=== PATIENT | male | born 1970 | race Caucasian/White ===

== ENCOUNTER 2018-02-04 13:49 | Emergency (ER) | payer SELFPAY ==
--- NOTE | 2018-02-04 15:27 | EDPHYS ---
Physician Documentation [facility] Name: Mauricio Landaverde Age: 47 yrs Sex: Male : 1970 Arrival Date: 02/04/2018 Time: 13:52 Bed 15 Private MD: ED Physician Wilber Cristobal HPI: 02/04 21:45 This 47 yrs old Male presents to ER via Ambulatory with complaints of Back snw Pain, Thumb Pain. 21:45 The patient presents with pain that is acute, with no known mechanism of injury. The snw symptoms are located in the low back. 21:52 Onset: The symptoms/episode began/occurred suddenly, 3 week(s) ago, and became snw persistent. The pain does not radiate. Associated signs and symptoms: The patient has no apparent associated signs or symptoms. The problem was sustained from unknown cause. Severity of symptoms: At their worst the symptoms were moderate, relieved by motrin/aleve. The patient has not experienced similar symptoms in the past. The patient has been recently seen by a physician: the patient's primary care provider, with similar presenting complaints, told to continue aleve. Historical: - Allergies: 13:59 No Known Allergies; aj - Home Meds: 13:59 None [Active]; aj - PMHx: 13:59 None; aj - PSHx: 13:59 Appendectomy; aj - Immunization history:: Adult Immunizations up to date. - Social history:: Smoking status: Patient uses tobacco products, smokes two packs cigarettes per day. - Ebola Screening: : Patient negative for fever greater than or equal to 101.5 degrees Fahrenheit, and additional compatible Ebola Virus Disease symptoms Patient denies exposure to infectious person Patient denies travel to an Ebola-affected area in the 21 days before illness onset No symptoms or risks identified at this time. ROS: 21:43 Constitutional: Negative for fever, chills, and weight loss, Eyes: Negative for injury, snw pain, redness, and discharge, ENT: Negative for injury, pain, and discharge, Neck: Negative for injury, pain, and swelling, Cardiovascular: Negative for chest pain, palpitations, and edema, Respiratory: Negative for shortness of breath, cough, wheezing, and pleuritic chest pain, Abdomen/GI: Negative for abdominal pain, nausea, vomiting, diarrhea, and constipation, : Negative for injury, bleeding, discharge, and swelling, MS/Extremity: Negative for injury and deformity, Skin: Negative for injury, rash, and discoloration, Neuro: Negative for headache, weakness, numbness, tingling, and seizure. 21:43 Back: Positive for pain at rest, pain with movement. Exam: 21:43 Constitutional: This is a well developed, well nourished patient who is awake, alert, snw and in no acute distress. Head/Face: Normocephalic, atraumatic. Eyes: Pupils equal round and reactive to light, extra-ocular motions intact. Lids and lashes normal. Conjunctiva and sclera are non-icteric and not injected. Cornea within normal limits. Periorbital areas with no swelling, redness, or edema. ENT: Nares patent. No nasal discharge, no septal abnormalities noted. Tympanic membranes are normal and external auditory canals are clear. Oropharynx with no redness, swelling, or masses, exudates, or evidence of obstruction, uvula midline. Mucous membranes moist. Neck: Trachea midline, no thyromegaly or masses palpated, and no cervical lymphadenopathy. Supple, full range of motion without nuchal rigidity, or vertebral point tenderness. No Meningismus. Chest/axilla: Normal chest wall appearance and motion. Nontender with no deformity. No lesions are appreciated. Cardiovascular: Regular rate and rhythm with a normal S1 and S2. No gallops, murmurs, or rubs. Normal PMI, no JVD. No pulse deficits. Respiratory: Lungs have equal breath sounds bilaterally, clear to auscultation and percussion. No rales, rhonchi or wheezes noted. No increased work of breathing, no retractions or nasal flaring. Abdomen/GI: Soft, non-tender, with normal bowel sounds. No distension or tympany. No guarding or rebound. No evidence of tenderness throughout. Skin: Warm, dry with normal turgor. Normal color with no rashes, no lesions, and no evidence of cellulitis. MS/ Extremity: Pulses equal, no cyanosis. Neurovascular intact. Full, normal range of motion. Neuro: Awake and alert, GCS 15, oriented to person, place, time, and situation. Cranial nerves II-XII grossly intact. Motor strength 5/5 in all extremities. Sensory grossly intact. Cerebellar exam normal. Normal gait. Psych: Awake, alert, with orientation to person, place and time. Behavior, mood, and affect are within normal limits. 21:43 Back: pain, that is mild, that is moderate, of the lumbar area, left low back and right low back, ROM is normal, normal spinal alignment noted, CVA tenderness, is absent, muscle spasm, is not present. 21:45 Neuro: Exam negative for acute changes. snw Vital Signs: 13:59 BP 126 / 72; Pulse 77; Resp 20; Temp 98.1; Pulse Ox 98% on R/A; Weight 83.91 kg; Height aj 6 ft. 0 in. (182.88 cm); 13:59 Body Mass Index 25.09 (83.91 kg, 182.88 cm) aj MDM: 14:44 Medical screening is not applicable. snw 21:44 Data reviewed: vital signs, nurses notes. Data interpreted: Pulse oximetry: on room air snw is 98 %. Interpretation: normal. Counseling: I had a detailed discussion with the patient and/or guardian regarding: the historical points, exam findings, and any diagnostic results supporting the discharge/admit diagnosis, lab results, the need for outpatient follow up, to return to the emergency department if symptoms worsen or persist or if there are any questions or concerns that arise at home. Special discussion: Based on the history and exam findings, there is no indication for further emergent testing or inpatient evaluation. I discussed with the patient/guardian the need to see the back specialist for further evaluation of the symptoms. I discussed with the patient/guardian the need to see the primary care provider for further evaluation of the symptoms. 21:53 ED course: pt encouraged to drink more water, decrease caffeine, protect himself from snw the sun ( works outdoors, very [place] ), be careful taking anti-inflammatories because they can injure the kidneys. Urine neg for protein or blood.. 02/04 14:45 Order name: Urine Microscopic Only; Complete Time: 21:52 snw 02/04 15:27 Order name: Urine Dipstick--Ancillary (enter results) eb 02/04 14:45 Order name: Urine Dipstick-Ancillary (obtain specimen); Complete Time: 15:26 snw 02/04 15:27 Order name: Urine Dipstick-Ancillary; Complete Time: 15:33 EDMS Administered Medications: No medications were administered Disposition: 02/05 07:09 Co-signature as Attending Physician, Wilber Cristobal MD I agree with the assessment and kdr plan of care. Disposition: 02/04/18 15:26 Discharged to Home. Impression: Low back pain. - Condition is Stable. - Discharge Instructions: Back Pain, Adult, Musculoskeletal Pain, Back Injury Prevention, [id number], Back Exercises, Crat-gj-[id number], Cryotherapy, Rehydration, Adult, Heat Therapy. - Prescriptions for orphenadrine citrate 100 mg Oral Tablet Sustained Release - take 1 tablet by ORAL route 2 times per day As needed; 20 tablet. - Medication Reconciliation Form, Thank You Letter, Antibiotic Education, Prescription Opioid Use form. - Follow up: Private Physician; When: 2 - 3 days; Reason: Recheck today's complaints, Continuance of care, Re-evaluation by your physician. Follow up: Emergency Department; When: As needed; Reason: Worsening of condition. Signatures: Dispatcher [employer] EDHI Lizeth Bailey, RN RN Wilber Hernández MD MD [facility] Lavinia Cha, SENIOR PROJECT LEADER/TEAM LEAD-C SENIOR PROJECT LEADER/TEAM LEAD-Csnw Malgorzata Perry RN RN iw Corrections: (The following items were deleted from the chart) 02/04 15:35 15:26 02/04/2018 15:26 Discharged to Home. Impression: Low back pain. Condition is iw Stable. Forms are Medication Reconciliation Form, Thank You Letter, Antibiotic Education, Prescription Opioid Use. Follow up: Private Physician; When: 2 - 3 days; Reason: Recheck today's complaints, Continuance of care, Re-evaluation by your physician. Follow up: Emergency Department; When: As needed; Reason: Worsening of condition. snw
--- NOTE | 2018-02-04 15:27 | ER ---
Nurse's Notes [facility] Name: Mauricio Landaverde Age: 47 yrs Sex: Male : 1970 Arrival Date: 02/04/2018 Time: 13:52 Bed 15 Private MD: Diagnosis: Low back pain Presentation: 02/04 13:58 Presenting complaint: Patient states: Low back pain x 3 weeks. 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 Transition of care: patient was not received from another setting of care. Onset of symptoms was January 09, 2018. Risk Assessment: Do you want to hurt yourself or someone else? Patient reports no desire to harm self or others. Initial Sepsis Screen: Does the patient meet any 2 criteria? No. Patient's initial sepsis screen is negative. Does the patient have a suspected source of infection? No. Patient's initial sepsis screen is negative. Care prior to arrival: None. 13:58 Method Of Arrival: Ambulatory 13:58 Acuity: DECLAN 4 Triage Assessment: 13:59 General: Appears in no apparent distress. comfortable, Behavior is calm, cooperative, aj appropriate for age. Pain: Complains of pain in low back area. Neuro: Level of Consciousness is awake, alert, obeys commands, Oriented to person, place, time, situation, Appropriate for age. Respiratory: Airway is patent Respiratory effort is even, unlabored, Respiratory pattern is regular, symmetrical. Derm: Skin is intact, is healthy with good turgor, Skin is pink, warm \\T\\ dry. normal. Musculoskeletal: Range of motion: intact in all extremities. Historical: - Allergies: 13:59 No Known Allergies; aj - Home Meds: 13:59 None [Active]; aj - PMHx: 13:59 None; aj - PSHx: 13:59 Appendectomy; - Immunization history:: Adult Immunizations up to date. - Social history:: Smoking status: Patient uses tobacco products, smokes two packs cigarettes per day. - Ebola Screening: : Patient negative for fever greater than or equal to 101.5 degrees Fahrenheit, and additional compatible Ebola Virus Disease symptoms Patient denies exposure to infectious person Patient denies travel to an Ebola-affected area in the 21 days before illness onset No symptoms or risks identified at this time. Screenin:16 Abuse screen: Denies threats or abuse. Denies injuries from another. Nutritional ss screening: No deficits noted. Tuberculosis screening: Never had TB. Fall Risk None identified. Assessment: 14:16 General: Appears in no apparent distress. comfortable, Behavior is calm, cooperative, ss Denies fever, feeling ill, fatigue, chills. General: Pt reports the pain is relieved with medications. Aleve last taken at 0600 this morning at Tylenol #3 ('s prescription) taken last at 0800.. Pain: Complains of pain in left low back Pain currently is 5 out of 10 on a pain scale. at worst was 10 out of 10 on a pain scale. Quality of pain is described as aching, tender, pinching, Pain began 3 weeks ago Is continuous. Neuro: Level of Consciousness is awake, alert, obeys commands, Oriented to person, place, time, situation, Gait is steady, Speech is normal, Pupils are PERRLA. Cardiovascular: Heart tones S1 S2 present Capillary refill < 3 seconds is brisk in bilateral fingers Patient's skin is warm and dry. Respiratory: Airway is patent Respiratory effort is even, unlabored. GI: Patient currently denies diarrhea, nausea, vomiting. : Denies cramping discharge, inability to void, incontinence, urinary frequency, urgency. EENT: Nares are clear Oral mucosa is moist. Derm: Skin is intact, is healthy with good turgor, Skin is dry, Skin is pink, warm \\T\\ dry. normal. Musculoskeletal: Circulation, motion, and sensation intact. Capillary refill < 3 seconds, is brisk, in bilateral fingers. Range of motion: intact in all extremities, Swelling absent. 15:10 Reassessment: Went into the pt. room to retrieve urine, and the pt. was not in the rb1 room. Provider notified. Vital Signs: 13:59 BP 126 / 72; Pulse 77; Resp 20; Temp 98.1; Pulse Ox 98% on R/A; Weight 83.91 kg; Height aj 6 ft. 0 in. (182.88 cm); 13:59 Body Mass Index 25.09 (83.91 kg, 182.88 cm) aj ED Course: 13:52 Patient arrived in ED. as 13:59 Triage completed. aj 13:59 Arm band placed on left wrist. Patient placed in an exam room. aj 14:16 Patient has correct armband on for positive identification. Bed in low position. Call light in reach. 14:35 Lavinia Cha FNP-C [facility]. snw 14:35 Wilber Cristobal MD is Attending Physician. snw 14:37 Lee Ann Brown, RN is Primary Nurse. rb1 15:35 No provider procedures requiring assistance completed. Patient did not have IV access iw during this emergency room visit. Administered Medications: No medications were administered Outcome: 15:26 Discharge ordered by . snw 15:33 Discharged to home pt left before signing discharge paperwork. I called pt to let him iw know we had a prescription for a muscle relaxer, pt stated "I was only interested in getting an antibiotic if I needed one, I don't need a muscle relaxer" 15:33 Condition: good 15:33 Discharge instructions given to patient. 15:35 Patient left the ED. iw Signatures: Lizeth Bailey, RN RN Lavinia Mane FNP-C SPIKE DRIVER-Grace Sheth as Malgorzata Perry, RN Cordelia Mai RN RN Lee Ann Brown, RN RN rb1
[2018-02-04 15:30] LABS: Urine Blood NEGATIVE (NEG); Urine Glucose NEGATIVE (NEG); Urine Protein NEGATIVE (NEG)
[2018-02-04 15:47] LABS: Urine Bacteria <20 /HPF (NONE SEEN); Urine Culture Reflex Order NOT NEEDED; Urine Mucus 1+ /HPF (NONE SEEN); Urine RBC <5 /HPF (NONE SEEN)
== END 2018-02-04 15:35 | disposition home or self-care (01) ==
LOC: ER 13:49
DX: M54.5 Low back pain (principal); F17.210 Nicotine dependence, cigarettes, uncomplicated
CPT/HCPCS: 81003; 81015; 99281